=== PATIENT | female | born 1985 | race Caucasian/White ===

== ENCOUNTER 2019-06-19 22:33 | Emergency (ER) | payer OTHER ==
[2019-06-19 22:53] VITALS: BP 112/71; PULSE 62; TEMP 98.4; BMI 29.0
== END 2019-06-20 01:15 | disposition left against medical advice (07) ==
LOC: JER 22:33
DX: Z53.21 Procedure and treatment not carried out due to patient leaving prior to being seen by health care provider (principal)
CPT/HCPCS: 99281-25

== ENCOUNTER 2019-07-21 11:40 | Emergency (ER) | payer OTHER ==
[2019-07-21 11:53] VITALS: BP 115/81; PULSE 68; TEMP 98.1; BMI 29.0
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
[2019-07-21] MEDS ORDERED: IBUPROFEN 600 MG TABLET (FP) PO ONE ×2 (12:27→12:42)
== END 2019-07-21 13:09 | disposition home or self-care (01) ==
LOC: JERFT 11:40
DX: S70.11XA Contusion of right thigh, initial encounter (principal); S50.02XA Contusion of left elbow, initial encounter; V03.10XA Pedestrian on foot injured in collision with car, pick-up truck or van in traffic accident, initial encounter; Y92.524 Gas station as the place of occurrence of the external cause; Y93.01 Activity, walking, marching and hiking; Y99.8 Other external cause status
CPT/HCPCS: 73070-TC-LT-FY; 99281-25

== ENCOUNTER 2023-01-04 13:00 | Emergency (ER) | payer OTHER ==
[2023-01-04 13:04] VITALS: BMI 23.3
[2023-01-04] MEDS ORDERED: KETOROLAC TROMETHAMINE 15 MG/ML VIAL IM ONE (13:42)
[2023-01-04 14:29] LABS: HEMATOCRIT 40.2 % (32.4-45.2); HEMOGLOBIN 13.7 GM/dL (10.7-15.3); MCH 31.6 pg (25.7-33.7); MEAN CELL VOLUME 92.8 fl (80-96); MEAN PLT VOLUME 7.8 fl (7.5-11.1); PLATELET COUNT 239 10^3/uL (134-434); RBC 4.33 M/mm3 (3.60-5.2); RDW 12.8 % (11.6-15.6); WHITE BLOOD COUNT 10.8 K/mm3 (4.0-10.0)
[2023-01-04] MEDS ORDERED: SODIUM CHLORIDE 0.9% 500 ML INFUS.BAG IV ONE (14:47)
[2023-01-04 15:00] LABS: CHLORIDE 110 mmol/L (98-107); SODIUM 138 mmol/L (136-145)
[2023-01-04 15:02] LABS: ALBUMIN 4.2 g/dl (3.4-5.0); ANION GAP 6 MMOL/L (8-16); CALCIUM 9.1 mg/dL (8.5-10.1); CO2 22 mmol/L (21-32); GLUCOSE,RANDOM 75 mg/dL (74-106)
[2023-01-04 15:03] LABS: BLOOD UREA NITROGEN 11.4 mg/dL (7-18)
[2023-01-04 15:05] LABS: SGPT/ALT 47 U/L (13-61)
[2023-01-04 15:06] LABS: CREATININE 0.8 mg/dL (0.55-1.3); SGOT/AST 27 U/L (15-37)
[2023-01-04 15:07] LABS: BILIRUBIN,TOTAL 0.4 mg/dL (0.2-1); TOT PROT 8.4 g/dl (6.4-8.2)
[2023-01-04 15:08] LABS: ALK PHOS 102 U/L (45-117)
[2023-01-04] MEDS ORDERED: KETOROLAC TROMETHAMINE 15 MG/ML VIAL ONE (15:14)
[2023-01-04 15:24] LABS: ERYTHROCYTE SEDIMENTATION RATE 4 mm/hr (0-20)
[2023-01-04 17:37] LABS: PH,URINE 5.5 (5.0-8.0); URINE APPEARANCE CLEAR; URINE BILIRUBIN NEGATIVE (NEGATIVE); URINE COLOR YELLOW; URINE GLUCOSE (UA) NEGATIVE (NEGATIVE); URINE KETONE 1+ (NEGATIVE); URINE LEUK ESTERASE NEGATIVE (NEGATIVE); URINE NITRITE NEGATIVE (NEGATIVE); URINE PROTEIN NEGATIVE (NEGATIVE); URINE UROBILINOGEN 0.2 mg/dL (0.2-1.0)
[2023-01-04 17:41] VITALS: BP 117/65; PULSE 76; RESP 15; TEMP 97.8
[2023-01-04 17:45] LABS: MAGNESIUM 2.2 mg/dL (1.8-2.4)
== END 2023-01-04 17:59 | disposition home or self-care (01) ==
LOC: JER 13:00
PROC: 3E0233Z Introduction of Anti-inflammatory into Muscle, Percutaneous Approach (ICD-10-PCS; principal; 2023-01-04)
DX: R42 Dizziness and giddiness (principal); R53.1 Weakness; Z20.822 Contact with and (suspected) exposure to COVID-19
CPT/HCPCS: 0241U-QW; 36415; 71046-TC-FY; 80053; 81003; 83735; 84443; 84484; 84703; 85027; 85651; 86140; 87086; 87186; 93005; 93010; 99285-25

== ENCOUNTER 2023-10-31 21:30 | Inpatient (IN) | payer OTHER ==
[2023-10-31] MEDS ORDERED: AMPICILLIN SODIUM 2 GM VIAL ONE (22:50)
[2023-10-31 23:00] VITALS: BMI 26.1
[2023-10-31] MEDS ORDERED: AMPICILLIN - 2 GM in SODIUM CHLORIDE 100 ML IVPB ONE (23:00)
[2023-10-31 23:08] LABS: BASO % 0.4 % (0-2.0); EOS % 0.3 % (0-4.5); HEMATOCRIT 34.1 % (32.4-45.2); HEMOGLOBIN 11.1 GM/dL (10.7-15.3); LYMPH % 20.3 % (8-40); MCH 27.8 pg (25.7-33.7); MCHC 32.4 g/dl (32.0-36.0); MEAN CELL VOLUME 85.9 fl (80-96); MEAN PLT VOLUME 9.1 fl (7.5-11.1); MONO % 6.7 % (3.8-10.2); NEUT % 72.3 % (42.8-82.8); PLATELET COUNT 262 10^3/uL (134-434); RBC 3.98 M/mm3 (3.60-5.2); RDW 13.2 % (11.6-15.6); WHITE BLOOD COUNT 9.8 K/mm3 (4.0-10.0)
[2023-10-31 23:13] LABS: INR 0.91 (0.83-1.09); PROTHROMBIN TIME (PATIENT) 10.6 SEC (9.7-13.0)
[2023-10-31] MEDS ORDERED: FENTANYL/BUPIVACAINE/NS/PF - PCEA - 50 ML DISP.SYRIN EP ONE (23:15)
[2023-10-31 23:16] LABS: ACTIVATED PTT 21.8 SECONDS (25.2-36.5)
[2023-10-31 23:25] LABS: POTASSIUM 4.1 mmol/L (3.5-5.1)
[2023-10-31 23:27] LABS: BLOOD UREA NITROGEN 11.2 mg/dL (7-18); CALCIUM 9.9 mg/dL (8.5-10.1)
[2023-10-31 23:31] LABS: CREATININE 0.7 mg/dL (0.55-1.3)
[2023-10-31] MEDS ORDERED: OXYTOCIN 30 UNITS in 0.9% NS 30 UNIT/500 ML INFUS.BAG IVPB SCH (23:45)
[2023-10-31] MEDS ORDERED: FENTANYL/BUPIVACAINE/NS/PF - PCEA - 50 ML DISP.SYRIN EP SCH (23:45)
[2023-10-31] MEDS ORDERED: ELECTROLYTE-148 SOLN 1,000 ML IV SCH (23:45)
[2023-10-31] MEDS ORDERED: NALOXONE HCL 0.4 MG/ML VIAL IVPUSH PRN (23:47)
[2023-11-01 00:24] LABS: HIV INTERPRETATION NEGATIVE (NEGATIVE)
[2023-11-01] MEDS ORDERED: OXYTOCIN 20 UNITS in 0.9% NS 20 UNIT/1,000 ML INFUS.BAG IV ONE (02:12)
[2023-11-01] MEDS ORDERED: AMPICILLIN SODIUM 1 GM VIAL ONE (02:21)
[2023-11-01] MEDS ORDERED: oxyCODONE HCL 5 MG TABLET PO PRN (02:44)
[2023-11-01] MEDS ORDERED: BISACODYL 10 MG SUPP.RECT RC PRN (02:44)
[2023-11-01] MEDS ORDERED: BENZOCAINE 20% 57 GM BOTTLE TP PRN (02:44)
[2023-11-01] MEDS ORDERED: METHYLERGONOVINE MALEATE 0.2 MG/1 ML AMP IM PRN (02:44)
[2023-11-01] MEDS ORDERED: WITCH HAZEL 50% (TUCKS) 40 PAD/JAR PAD TP PRN (02:44)
[2023-11-01] MEDS ORDERED: BENZOCAINE 28 GM HEMORRHOIDAL OINTMENT TP PRN (02:44)
[2023-11-01] MEDS ORDERED: OXYTOCIN 20 UNITS in 0.9% NS 20 UNIT/1,000 ML INFUS.BAG IV SCH (02:45)
[2023-11-01] MEDS ORDERED: AMPICILLIN - 1 GM in SODIUM CHLORIDE 100 ML IVPB SCH (03:00)
[2023-11-01] MEDS ORDERED: OXYTOCIN 10 UNIT/ML 10ML MDV IM ONE (03:35)
[2023-11-01] MEDS ORDERED: OXYTOCIN 10 UNITS/ML VIAL ONE (03:36)
[2023-11-01] MEDS ORDERED: oxyCODONE HCL 5 MG TABLET ONE (03:41)
[2023-11-01] MEDS: PRENATAL VITAMINS W/ FOLIC ACID TABLET (FP) PO SCH (09:10)
[2023-11-01] MEDS: FERROUS SO4 325 MG TABLET (FP) PO SCH (09:10)
[2023-11-01] MEDS: ACETAMINOPHEN 325 MG TABLET (FP) PO PRN ×2 (09:10→16:23)
[2023-11-01] MEDS ORDERED: DIPHTH,PERTUSS(ACELL),TET 0.5 ML DISP.SYRIN IM ONE (10:00)
[2023-11-01] MEDS: IBUPROFEN 600 MG TABLET (FP) PO PRN (18:21)
[2023-11-02] MEDS: IBUPROFEN 600 MG TABLET (FP) PO PRN (06:17)
[2023-11-02 08:49] LABS: BASO % 0.3 % (0-2.0); EOS % 0.5 % (0-4.5); HEMATOCRIT 24.8 % (32.4-45.2); HEMOGLOBIN 8.1 GM/dL (10.7-15.3); LYMPH % 30.3 % (8-40); MCHC 32.7 g/dl (32.0-36.0); MEAN CELL VOLUME 85.9 fl (80-96); MEAN PLT VOLUME 9.2 fl (7.5-11.1); MONO % 7.2 % (3.8-10.2); NEUT % 61.7 % (42.8-82.8); PLATELET COUNT 201 10^3/uL (134-434); RBC 2.89 M/mm3 (3.60-5.2); RDW 12.9 % (11.6-15.6)
[2023-11-02] MEDS: FERROUS SO4 325 MG TABLET (FP) PO SCH (10:42)
[2023-11-02] MEDS: PRENATAL VITAMINS W/ FOLIC ACID TABLET (FP) PO SCH (10:42)
[2023-11-02] MEDS: ACETAMINOPHEN 325 MG TABLET (FP) PO PRN (11:59)
[2023-11-02] MEDS ORDERED: DIPHTH,PERTUSS(ACELL),TET 0.5 ML DISP.SYRIN IM ONE ×2 (12:00→15:00)
[2023-11-02] MEDS ORDERED: SENNOSIDES/DOCUSATE COMBO (SENNA PLUS) TABLET (UD) PO PRN (22:00)
[2023-11-03] MEDS: PRENATAL VITAMINS W/ FOLIC ACID TABLET (FP) PO SCH (10:28)
[2023-11-03] MEDS: FERROUS SO4 325 MG TABLET (FP) PO SCH (10:28)
[2023-11-03 11:43] VITALS: BP 93/62; PULSE 98; RESP 16; TEMP 97.7
== END 2023-11-03 13:40 | disposition home or self-care (01) | DRG 560 ==
LOC: JLDR 21:30 → J3W 11-01 04:47
PROVIDERS: ADMIT Obstetrics & Gynecology; ATTEND Obstetrics & Gynecology
PROC: 10E0XZZ Delivery of Products of Conception, External Approach (ICD-10-PCS; principal; 2023-11-01)
PROC: 0W8NXZZ Division of Female Perineum, External Approach (ICD-10-PCS; 2023-11-01)
PROC: 0HQ9XZZ Repair Perineum Skin, External Approach (ICD-10-PCS; 2023-11-01)
DX: O70.0 First degree perineal laceration during delivery (principal); Z3A.37 37 weeks gestation of pregnancy; Z37.0 Single live birth
CPT/HCPCS: 36415; 80048; 82962; 85025; 85610; 85730; 86780; 86850; 86900; 86901; 87389; 90715

== ENCOUNTER 2024-05-21 14:32 | Emergency (ER) | payer OTHER ==
[2024-05-21 14:54] VITALS: BP 106/65; PULSE 66; RESP 20; TEMP 98.2; BMI 23.3
[2024-05-21] MEDS ORDERED: KETOROLAC TROMETHAMINE 30 MG/1 ML VIAL ONE (16:32)
[2024-05-21] MEDS: KETOROLAC TROMETHAMINE 30 MG/1 ML VIAL IM ONE (16:41)
== END 2024-05-21 18:35 | disposition home or self-care (01) ==
LOC: JERFT 14:32
PROC: 3E0133Z Introduction of Anti-inflammatory into Subcutaneous Tissue, Percutaneous Approach (ICD-10-PCS; principal; 2024-05-21)
DX: R68.84 Jaw pain (principal); V87.7XXA Person injured in collision between other specified motor vehicles (traffic), initial encounter
CPT/HCPCS: 70100-TC-FY; 99284-25